=== PATIENT | male | born 1995 | race Caucasian/White ===

== ENCOUNTER 2021-09-18 20:26 | Emergency (ER) | payer OTHER, SELFPAY ==
[2021-09-18 20:48] VITALS: BP 142/86; PULSE 96; RESP 20; TEMP 36.6; O2SAT 100; BMI 25.0
[2021-09-18 21:54] LABS: COVID-19 Test Negative (Negative)
--- NOTE | 2021-09-18 23:36 | ED.URI ---
HPI - URI/Sore Throat General Chief Complaint: Upper Respiratory Symptoms Stated Complaint: L side head pain Time Seen by Provider: 09/18/21 23:54 Source: patient Mode of arrival: ambulatory Limitations: no limitations History of Present Illness HPI Narrative: 25-year-old male presents with left-sided sinus pain and headache. States have green discharge from his nose, has had a history of recurrent sinusitis in the past. MD elicited complaint: sinus pain Pertinent past history: sinusitis Onset (ago): day(s) (5) Consistency: constant Severity: moderate Pain scale (0-10): 6 Description of mucous: green Able to tolerate fluids by mouth: Yes Exacerbating factors: changing head position and leaning forward Relieving factors: nothing Associated symptoms: headache and nasal congestion Treatments prior to arrival: none Related Data Previous Rx's Medication Instructions Recorded amoxicillin 875 mg-potassium 1 tab PO Q12H 7 Days #14 tab 09/19/21 clavulanate 125 mg tablet (Augmentin) Allergies Allergy/AdvReac Type Severity Reaction Status Date / Time No Known Allergies Allergy Verified 09/18/21 23:54 Review of Systems Review of Systems: Constitutional: No Fever, No Chills ENT/Mouth: Positive facial pressure, positive nasal drainage, No sore throat, No Rhinorrhea Eyes: No Eye Pain, No Swelling, No Redness Cardiovascular: No Chest Pain, No SOB Respiratory: No Cough, No Sputum Gastrointestinal: No Nausea, No Vomiting, No Diarrhea, No abdominal Pain Genitourinary: No Dysuria, No Hematuria Musculoskeletal: No joint pain, No Myalgias, No Joint Swelling Skin: No Skin Lesions, No rash Neuro: No Weakness, No Numbness, No Loss of Consciousness, No Dizziness, No Headache Psych: No Anxiety, No Depression, No SI/HI/AH/VH Heme/Lymph: No Bruising, No Bleeding,No Lymphadenopathy Endocrine: No Polyuria, No Polydipsia Yes all other systems are reviewed and are negative PMFSH Past Medical History Attestation statement: The following information was validated with the patient. Source: old records reviewed Social History Social History Advance Directives: No Advance Directives Information Provided: No Physical Exam Vital Signs: Vital Signs: Last Vital Signs Temp 98 F 09/18/21 20:48 Pulse 96 09/18/21 20:48 Resp 20 09/18/21 20:48 BP 142/86 H 09/18/21 20:48 Pulse Ox 100 09/18/21 20:48 BMI result Body Mass Index 25.0 Appearance: Alert. Oriented X3. No acute distress. Unkempt. Eyes: Pupils equal, round and reactive to light. EOMI. Sclera nonicteric. ENT: Pharynx normal. Green nasal discharge. Tenderness to palpation to the left frontal sinus. Neck: Normal inspection. Neck supple. Cervical lymphadenopathy. No nuchal rigidity. CVS: Normal heart rate and rhythm. Pulses normal. Respiratory: No respiratory distress. Breath sounds normal. Abdomen: Soft and nontender. Skin: Skin warm and dry. Normal skin color. Normal skin turgor. Extremities: No lower extremity edema. Gait well-balanced well coordinated. Neuro: No motor deficit. No sensory deficit. Cranial nerves 2-12 intact. Course Course Course Narrative: 25-year-old male presents with upper respiratory symptoms, frontal sinus pain, and green nasal discharge for approximately 5 days. Has not taken any medication to alleviate his discomfort. COVID test is negative. Patient's presentation is consistent with sinusitis. Patient is a febrile, even unlabored respirations, alert oriented x4, no indication of toxicity at this time. Will discharge to home with Augmentin. Patient verbalized understanding of and agrees to plan of care discharge home. MDM - URI/Sore Throat Differential Diagnosis Differential diagnosis: Likely upper respiratory infection, sinusitis, viral infection, bronchitis, influenza and pharyngitis Medical Records Attestation: I reviewed the patient's medical records. Lab Data Attestation: I reviewed the patient's lab results. Labs: Lab Results 09/18/21 Range/Units 21:15 COVID-19 (DOUG) Negative (Negative) COVID-19 Clin Com See Note Discharge Plan Discharge Clinical Impression: Sinusitis Qualifiers: Sinusitis location: frontal Chronicity: acute Recurrence: not specified as recurrent Qualified Code(s): J01.10 - Acute frontal sinusitis, unspecified Patient Disposition: Home, Self-Care Instructions: Sinusitis (ED) Additional Instructions: You were evaluated for upper respiratory symptoms. Your COVID test is negative. Your physical presentation is consistent with sinusitis. Please take Augmentin twice a day for the next 7 days. Use Tylenol 650 mg every 6 hours and Motrin 600 mg every 6 hours as needed for pain management. Please write down what time take these medications to prevent accidental overdose. Your last dose of Tylenol was given to you at midnight. Thank you for choosing this emergency department for evaluation. Please follow-up with primary care physician as needed. Return to the emergency department for any new, concerning, or worsening symptoms. Prescriptions: New amoxicillin-pot clavulanate [Augmentin] 875-125 mg tablet 1 tab PO Q12H 7 Days Qty: 14 RF: 0
[2021-09-19] MEDS: Amoxicillin/Potassium Clav 875 MG TABLET PO (00:16)
[2021-09-19] MEDS: Acetaminophen 325 MG TABLET 650 MG PO (00:16)
== END 2021-09-19 00:48 | disposition home or self-care (01) ==
PROVIDERS: Emergency Provider Student in an Organized Health Care Education/Training Program
DX: J01.10 Acute frontal sinusitis, unspecified (principal); Z20.822 Contact with and (suspected) exposure to COVID-19
CPT/HCPCS: 87635; 99283; 99284

== ENCOUNTER 2022-09-23 20:54 | Emergency (ER) | payer MEDICAID, SELFPAY ==
[2022-09-23 21:02] VITALS: BP 124/87; PULSE 92; RESP 16; TEMP 37; O2SAT 100; BMI 24.0
[2022-09-23 21:40] LABS: Glucose, Whole Blood 99 mg/dL (60-115)
--- NOTE | 2022-09-23 21:41 | ED_ITS ---
HPI - Psych General Chief Complaint: Psychiatric Symptoms Stated Complaint: Found in position outside, cold per EMS Time Seen by Provider: 09/23/22 21:06 History of Present Illness HPI Narrative: Patient is a 26-year-old male presented today after being found homeless. Patient was found in a position next to a [employer]. Patient claims that he has no ride to get to [place]. He acted as if he was unresponsive so they can transfer him to [place]. Patient denies any suicidal homicidal ideation. Upon arrival patient has no complaints. He denies any recreational drugs no alcohol. Patient has no complaints. Related Data Previous Rx's Medication Instructions Recorded amoxicillin 875 mg-potassium 1 tab PO Q12H 7 days #14 tabs 09/19/21 clavulanate 125 mg tablet (Augmentin) Allergies Allergy/AdvReac Type Severity Reaction Status Date / Time No Known Allergies Allergy Unverified 09/23/22 21:07 Review of Systems Review of Systems: No chest pain or shortness of breath no nausea no vomiting no systemic complaints Yes all other systems are reviewed and are negative [facility] Past Medical History Attestation statement: The following information was validated with the patient. Physical Exam Vital Signs: Vital Signs: Last Vital Signs Temp 98.6 F 09/23/22 21:02 Pulse 92 09/23/22 21:02 Resp 16 09/23/22 21:02 BP 124/87 09/23/22 21:02 Pulse Ox 100 09/23/22 21:02 O2 Del Method 09/23/22 21:02 BMI result Body Mass Index 24.0 Appearance: Alert. Oriented X3. No acute distress. Eyes: Pupils equal, round and reactive to light. ENT: Pharynx normal. Neck: Normal inspection. Neck supple. No lymph nodes noted. No crepitus CVS: Normal heart rate and rhythm. Pulses normal. Normal S1 and S2 Respiratory: No respiratory distress. Breath sounds normal. No Wheezing. No rales Abdomen: Soft and nontender. No rigidity. No distention. good BS x4 Skin: Skin warm and dry. Normal skin color. Normal skin turgor. Extremities: No lower extremity edema. Neurovascular intact to all extremities. No Lacerations. No Rash Neuro: Oriented X 3. No motor deficit. No sensory deficit. Moving all extermities. No slurred speech Medical Decision Making Differential Diagnosis Differential Diagnoses: The differential diagnosis associated with the presentation includes Patient has no symptoms. He woke up upon arrival at [place]. Answering questions appropriately. Patient is not suicidal homicidal. Just has no place to stay. He is in stable condition. Admission/Observation Consideration of admission/observation: Escalation of care including admission/observation considered Lab Data Labs: Lab Results 09/23/22 Range/Units 21:09 POC Glucose 99 (60-115) mg/dL Discharge Plan Discharge Clinical Impression: Mood disorder Patient Disposition: Home, Self-Care Instructions: Normal Exam (ED) Prescriptions: No Action amoxicillin-pot clavulanate [Augmentin] 875-125 mg tablet 1 tab PO Q12H 7 Days Qty: 14 0RF Referrals: [facility] [Physician] -
== END 2022-09-23 22:02 | disposition home or self-care (01) ==
LOC: HO.ED 21:52
PROVIDERS: Emergency Provider Emergency Medicine Emergency Medical Services
DX: F39 Unspecified mood [affective] disorder (principal); Z59.00 Homelessness unspecified
CPT/HCPCS: 82947; 99283